=== PATIENT | male | born 1945 | race Caucasian/White ===

== ENCOUNTER 2018-02-04 10:21 | Inpatient (IN) | payer MEDICARE ==
[2018-02-04] VITALS (13 sets, daily range): BP systolic 76–101; BP diastolic 50–70
[~2018-02-04] VITALS: Ht 172.7 cm; Wt 46.8 kg
[2018-02-04] MEDS ORDERED: ELIQUIS2.5 MG PO (10:32)
[2018-02-04] MEDS ORDERED: XANAX0.5 MG PO (10:33)
[2018-02-04] MEDS ORDERED: PROZAC10 MG PO (10:35)
[2018-02-04 11:11] LABS: BASOPHILS 0.2 % (0-2); EOSINOPHILS 0.5 % (0-7); HEMOGLOBIN 15.5 g/dL (13.5-17.5); IMMATURE GRANULOCYTES 0.2 % (0-5); LYMPHOCYTES 18.6 % (15-50); MCH 31.4 pg (26.0-34.0); MCV 87.2 fL (80.0-100.0); MEAN PLATELET VOLUME 10.6 fL (7.4-10.4); MONOCYTES 12.8 % (2-11); NEUTROPHILS 67.7 % (40-80); PLATELET COUNT 241 10x3/uL (130-400); RBC 4.93 10x6/uL (4.20-6.10); RDW 13.2 % (11.5-14.5); WBC 5.7 10x3/uL (4.8-10.8)
[2018-02-04 11:21] LABS: APTT 29.9 SECONDS (22.8-39.4); INR 1.08 (0.85-1.17); PROTIME 13.6 SECONDS (11.6-15.0)
[2018-02-04 11:56] LABS: ALBUMIN 3.8 g/dL (3.4-5.0); ALKALINE PHOSPHATASE 93 U/L (46-116); ALT (SGPT) 15 U/L (10-68); AMYLASE - SERUM 69 U/L (25-115); BILIRUBIN - TOTAL 0.53 mg/dL (0.2-1.3); CALC OSMOLALITY 291 mosm/kg (275-300); CALCIUM 8.7 mg/dL (8.5-10.1); CARBON DIOXIDE 21.7 mmol/L (21.0-32.0); CHLORIDE - SERUM 91 mmol/L (98-107); CKMB 1.1 U/L (0.0-3.6); CREATINE KINASE 48 UL (21-232); CREATININE - SERUM 3.2 mg/dL (0.6-1.3); GLUCOSE 139 mg/dL (74-106); LIPASE 266 U/L (73-393); POTASSIUM - SERUM 3.4 mmol/L (3.5-5.1); PROTEIN - SERUM 7.1 g/dL (6.4-8.2); SODIUM 130 mmol/L (136-145); TROPONIN-I < 0.017 ng/mL (0.000-0.060); UREA NITROGEN 94 mg/dL (7-18); eGFR NON AFRICAN AMERICAN 20 mL/min (90-120)
[2018-02-04 12:47] LABS: APPEARANCE HAZY (CLEAR); BACTERIA FEW /hpf (NONE SEEN); BILIRUBIN NEGATIVE (NEGATIVE); COLOR DK YELLOW (YELLOW); EPITHELIAL CELLS 0-5 /hpf (0-5); GLUCOSE NEGATIVE (NEGATIVE); KETONE NEGATIVE (NEGATIVE); NITRITE NEGATIVE (NEGATIVE); PROTEIN 1+ mg/dL (NEGATIVE); SPECIFIC GRAVITY 1.025 (1.005-1.020); UROBILINOGEN NORMAL (NORMAL); WHITE CELLS - URINE 0-5 /hpf (0-5)
[2018-02-04 12:48] LABS: MUCUS >1+ /lpf (NONE SEEN); WAXY CAST RARE /lpf (NONE SEEN)
[2018-02-04] MEDS ORDERED: METAMUCIL PACKE1 PKT PO (21:10)
[2018-02-05 04:00] VITALS: BP 121/73
[2018-02-05 06:29] VITALS: BMI 15.2
[2018-02-05 08:34] VITALS: BP 81/54
[2018-02-05 10:43] LABS: BASOPHILS 0.2 % (0-2); EOSINOPHILS 1.9 % (0-7); HEMATOCRIT 36.5 % (42.0-54.0); IMMATURE GRANULOCYTES 0.2 % (0-5); MCH 31.5 pg (26.0-34.0); MCHC 35.6 g/dL (31.0-37.0); MCV 88.4 fL (80.0-100.0); MEAN PLATELET VOLUME 10.3 fL (7.4-10.4); MONOCYTES 15.2 % (2-11); NEUTROPHILS 66.5 % (40-80); PLATELET COUNT 227 10x3/uL (130-400); RBC 4.13 10x6/uL (4.20-6.10); RDW 13.2 % (11.5-14.5); WBC 4.8 10x3/uL (4.8-10.8)
[2018-02-05 11:02] VITALS: Ht 172.7 cm; Wt 46.8 kg
[2018-02-05 11:11] LABS: CALCIUM 7.8 mg/dL (8.5-10.1); CHOL - HDL RATIO 2.9 ratio (2.3-4.9); LDL-HDL RATIO 1.6 ratio (1.5-3.5); MAGNESIUM - SERUM 1.2 mg/dL (1.8-2.4); PRE-ALBUMIN 20.8 mg/dL (18.0-35.7)
[2018-02-05 11:21] LABS: ALBUMIN 2.9 g/dL (3.4-5.0); ANION GAP 10.2 mmol/L (8-16); BILIRUBIN - TOTAL 0.34 mg/dL (0.2-1.3); CALCIUM 7.9 mg/dL (8.5-10.1); CARBON DIOXIDE 23.8 mmol/L (21.0-32.0); PROTEIN - SERUM 5.6 g/dL (6.4-8.2); THYROID STIMULATING HORMONE 0.78 uIU/mL (0.36-3.74)
[2018-02-05 11:22] LABS: CREATININE - SERUM 1.4 mg/dL (0.6-1.3)
[2018-02-05 16:07] VITALS: BP 85/53
[2018-02-05 20:00] VITALS: BP 99/71
[2018-02-06 04:00] VITALS: BP 81/53
[2018-02-06 06:37] LABS: BASOPHILS 0.2 % (0-2); EOSINOPHILS 1.9 % (0-7); HEMATOCRIT 39.5 % (42.0-54.0); HEMOGLOBIN 13.6 g/dL (13.5-17.5); IMMATURE GRANULOCYTES 0.2 % (0-5); LYMPHOCYTES 15.9 % (15-50); MCH 30.6 pg (26.0-34.0); MCHC 34.4 g/dL (31.0-37.0); MEAN PLATELET VOLUME 10.6 fL (7.4-10.4); MONOCYTES 11.9 % (2-11); NEUTROPHILS 69.9 % (40-80); PLATELET COUNT 233 10x3/uL (130-400); RBC 4.44 10x6/uL (4.20-6.10); RDW 13.4 % (11.5-14.5)
[2018-02-06 06:55] LABS: WBC 6.2 10x3/uL (4.8-10.8)
[2018-02-06 07:36] LABS: ALBUMIN 2.7 g/dL (3.4-5.0); ALKALINE PHOSPHATASE 69 U/L (46-116); BILIRUBIN - TOTAL 0.31 mg/dL (0.2-1.3); CALC OSMOLALITY 286 mosm/kg (275-300); CALCIUM 7.9 mg/dL (8.5-10.1); CARBON DIOXIDE 24.4 mmol/L (21.0-32.0); CHLORIDE - SERUM 108 mmol/L (98-107); GLUCOSE 79 mg/dL (74-106); PROTEIN - SERUM 5.4 g/dL (6.4-8.2); SODIUM 140 mmol/L (136-145); UREA NITROGEN 37 mg/dL (7-18)
[2018-02-06 07:37] LABS: ALT (SGPT) 14 U/L (10-68); CREATININE - SERUM 0.9 mg/dL (0.6-1.3); POTASSIUM - SERUM 3.9 mmol/L (3.5-5.1); eGFR NON AFRICAN AMERICAN 89 mL/min (90-120)
[2018-02-06 08:36] VITALS: BP 94/64
[2018-02-06 10:23] LABS: FOLATE (FOLIC ACID) - SERUM 15.1 ng/mL (>3.0)
[2018-02-06 12:39] VITALS: BP 85/57
[2018-02-06 20:00] VITALS: BP 85/54
[2018-02-07 04:00] VITALS: BP 100/60
[2018-02-07 06:01] LABS: BASOPHILS 0.2 % (0-2); EOSINOPHILS 2.4 % (0-7); HEMATOCRIT 35.5 % (42.0-54.0); HEMOGLOBIN 12.1 g/dL (13.5-17.5); IMMATURE GRANULOCYTES 0.2 % (0-5); LYMPHOCYTES 14.1 % (15-50); MCH 30.6 pg (26.0-34.0); MCHC 34.1 g/dL (31.0-37.0); MCV 89.9 fL (80.0-100.0); MEAN PLATELET VOLUME 10.2 fL (7.4-10.4); MONOCYTES 11.2 % (2-11); NEUTROPHILS 71.9 % (40-80); PLATELET COUNT 206 10x3/uL (130-400); RBC 3.95 10x6/uL (4.20-6.10); RDW 13.8 % (11.5-14.5); WBC 6.6 10x3/uL (4.8-10.8)
[2018-02-07 06:40] LABS: ALBUMIN 2.3 g/dL (3.4-5.0); ALKALINE PHOSPHATASE 71 U/L (46-116); ALT (SGPT) 12 U/L (10-68); BILIRUBIN - TOTAL 0.11 mg/dL (0.2-1.3); CALC OSMOLALITY 283 mosm/kg (275-300); CALCIUM 7.2 mg/dL (8.5-10.1); CARBON DIOXIDE 21.1 mmol/L (21.0-32.0); CHLORIDE - SERUM 113 mmol/L (98-107); CREATININE - SERUM 0.8 mg/dL (0.6-1.3); GLUCOSE 67 mg/dL (74-106); PROTEIN - SERUM 4.5 g/dL (6.4-8.2); SODIUM 142 mmol/L (136-145); UREA NITROGEN 21 mg/dL (7-18); eGFR NON AFRICAN AMERICAN > 90 mL/min (90-120)
[2018-02-07 08:17] VITALS: BP 86/55
[2018-02-07 11:56] VITALS: BP 77/52
[2018-02-07] MEDS ORDERED: LOPERAMIDE HCL2 MG PO (14:55)
[2018-02-07] MEDS ORDERED: METAMUCIL PACKE1 PKT PO (15:03)
[2018-02-07] MEDS ORDERED: PEPCID AC20 MG PO (15:04)
[2018-02-07 15:33] VITALS: BP 79/45
[2018-02-07 21:09] VITALS: BP 82/51
[2018-02-08 01:28] VITALS: BP 86/52
[2018-02-08 05:21] LABS: BASOPHILS 0.3 % (0-2); EOSINOPHILS 3.8 % (0-7); HEMATOCRIT 33.2 % (42.0-54.0); HEMOGLOBIN 11.2 g/dL (13.5-17.5); IMMATURE GRANULOCYTES 0.2 % (0-5); LYMPHOCYTES 15.7 % (15-50); MCH 30.5 pg (26.0-34.0); MCHC 33.7 g/dL (31.0-37.0); MCV 90.5 fL (80.0-100.0); MEAN PLATELET VOLUME 10.3 fL (7.4-10.4); MONOCYTES 11.8 % (2-11); NEUTROPHILS 68.2 % (40-80); PLATELET COUNT 186 10x3/uL (130-400); RBC 3.67 10x6/uL (4.20-6.10); RDW 14.1 % (11.5-14.5); WBC 6.6 10x3/uL (4.8-10.8)
[2018-02-08 05:35] LABS: CARBON DIOXIDE 16.9 mmol/L (21.0-32.0); CHLORIDE - SERUM 115 mmol/L (98-107); SODIUM 141 mmol/L (136-145)
[2018-02-08 05:39] VITALS: BP 88/48
[2018-02-08 05:49] LABS: ALBUMIN 1.8 g/dL (3.4-5.0); ALKALINE PHOSPHATASE 50 U/L (46-116); ALT (SGPT) 11 U/L (10-68); BILIRUBIN - TOTAL 0.15 mg/dL (0.2-1.3); CREATININE - SERUM 0.6 mg/dL (0.6-1.3); GLUCOSE 85 mg/dL (74-106); PROTEIN - SERUM 4.2 g/dL (6.4-8.2); eGFR NON AFRICAN AMERICAN > 90 mL/min (90-120)
[2018-02-08 05:58] LABS: CALC OSMOLALITY 280 mosm/kg (275-300); CALCIUM 6.8 mg/dL (8.5-10.1); UREA NITROGEN 15 mg/dL (7-18)
[2018-02-08 08:16] VITALS: BP 78/49
[2018-02-08 11:25] VITALS: BP 93/54
[2018-02-14 11:20] LABS: VITAMIN K 0.25 ng/mL (0.13-1.88)
== END 2018-02-08 17:26 | DRG 682 ==
LOC: D.ER 10:21 → D.M2 13:57 → D.EDHOLD 13:57 → D.M2 18:51
PROVIDERS: Family Medicine; Internal Medicine Gastroenterology
DX: N17.9 Acute kidney failure, unspecified (principal); E43 Unspecified severe protein-calorie malnutrition; E87.1 Hypo-osmolality and hyponatremia; Z68.1 Body mass index [BMI] 19.9 or less, adult; R73.9 Hyperglycemia, unspecified; R53.1 Weakness; I95.9 Hypotension, unspecified; E87.6 Hypokalemia; R19.5 Other fecal abnormalities

== ENCOUNTER 2018-02-08 14:51 | Inpatient (IN) | payer MEDICARE ==
[~2018-02-08] VITALS: Ht 172.7 cm; Wt 51.3 kg
--- NOTE | ~2018-02-08 | RHP ---
PATIENT: HINA BISHOP MEDICAL RECORD: [id number] ACCOUNT: [id number] LOCATION:[facility]1114 : 49 ADMISSION DATE: 02/08/18 REHABILITATION HISTORY AND PHYSICAL EXAMINATION POST ADMISSION PHYSICIAN EXAMINATION DATE OF ADMISSION: 02/08/2018 ADMITTING DIAGNOSIS: Disuse myopathy. HISTORY OF PRESENT ILLNESS: The patient admitted to the inpatient rehab for a neurological condition of disuse myopathy. This is a 72-year-old gentleman who presented to the Emergency Room with weakness and inability to stand. He was found to be in acute renal failure, acute kidney injury, and dehydration. He reported he had been eating poorly and drinking poorly at home since his discharge from [facility] on 01/17/2018. He has had loose stools for ileostomy and skin irritation to his right lower abdomen secondary to the loose stool leakage. He has had a past medical history of colorectal cancer and colostomy placed in 1998. He is yet to have ileostomy placed to his lower right abdomen approximately 5-1/2 years ago after developing gangrenous small bowel infection and colostomy to his lower abdomen, is now nonfunctioning. He underwent both chemo and radiation. He has had a large amount of feces recently that triggered a dehydration and weight loss. Registered Private Duty Nurse has been consulted and he has been following the patient during his acute hospital stay. He has been noncompliant with ostomy care and assistance with care of his ileostomy, but has been allowing assistance over the past couple of days. He continues to need assistance with ostomy care and skin breakdown irritation to his right lower abdomen. He has been very hypotensive at times, they are starting to slowly hydrate and monitor his lab values closely. He is very debilitated and weak. He is unable to take care of himself at this time and needs acute inpatient rehabilitation to return back to his prior level of function or better. He lives alone in an apartment and requires steps to be climbed to enter. He was independent with ADLs and mobility prior to this. He is currently set for mod assist with his ADLs, mod assist to total assist with mobility. He plans on returning back to his apartment or home at his prior level of functioning or better after the acute inpatient stay. COMORBIDITIES: In this patient include acute kidney injury, hyperglycemia, hyponatremia, hypokalemia, weakness, hypotension, guaiac-positive stool, rectal cancer, gangrenous small bowel. PAST MEDICAL HISTORY: Significant for gastroesophageal reflux disease, depression, idiopathic kyphoscoliosis, hypertension, history of PE, chronic pain, tobacco use, rectal cancer, rectal resection, colostomy, gangrenous small bowel, weakness, COPD and ileostomy. PAST SURGICAL HISTORY: Includes rectal resection with colostomy and gangrenous small bowel. ALLERGIES: SULFA. CURRENT MEDICATIONS: Include Prozac 10 mg daily. He is on Calmoseptine daily, Xanax 0.5 mg b.i.d., psyllium 1 packet t.i.d. with meals, loperamide 2 mg every 8 hours p.r.n., Pepcid 20 mg b.i.d. and Eliquis 2.5 mg b.i.d. HISTORY AND PHYSICAL [id number] HINA BISHOP HABITS: Does have a history of tobacco use. FAMILY HISTORY: Noncontributory. SOCIAL HISTORY: The patient hopefully will be able to return home if able. REVIEW OF SYSTEMS: GENERAL: Denies weakness or fatigue. HEENT: Denies cold, cough, or congestion. CARDIOVASCULAR: Denies chest pain. PHYSICAL EXAMINATION: VITAL SIGNS: Stable, afebrile. GENERAL: An elderly gentleman who is alert and somewhat resistant to care at this time. HEENT: Normocephalic and atraumatic. Mucosa moist. NECK: Supple. No lymphadenopathy. LUNGS: Clear at this time. HEART: Regular rate and rhythm. ABDOMEN: Benign, although he does have a reddened area to his ileostomy area that appears excoriated around this, but apparently he has been dabbing this area all day long. EXTREMITIES: No clubbing, cyanosis or edema. NEUROLOGIC: He does have some noted confusion. LABORATORY DATA: His white count 6.3, H&H of 13 and 38 and platelet count was noted to be 197. His sodium is 139, potassium 4.1, BUN and creatinine of 10 and 0.8 and blood sugar is noted to be 81. ASSESSMENT: This is a 72-year-old gentleman admitted to the rehab with a working diagnosis of disuse myopathy. The patient has potential to make improvement. We instituted the following multidisciplinary therapies include, but not limited to physical, occupational, respiratory, speech, nutritional services, prosthetics and orthotics. Given his complex medical condition and risk for more complications, rehabilitation services cannot be provided at a low level of care such as a half-way facility. PLAN: 1. Admit to [facility] for intensive inpatient therapy to include the following disciplines: A. Physical therapy to improve gait, all transfer skills and bed mobility to a modified independent level. B. Occupational therapy to improve activities of daily living to a modified independent level. C. Case management to assist with discharge planning and placement options. D. Nutrition to assist with nutritional needs. E. Rehabilitation nursing to assist in monitoring the patient's underlying medical conditions and to assist with any type of bowel or bladder management. 2. The patient's current medication and medical care will be continued. 3. Placed on standard fall precautions. 4. We are going to go ahead and get an adult psych consult on this patient at this time. 5. We will follow this patient up in a.m. TRANSINT:[id number] Voice Confirmation ID: [id number] DOCUMENT ID: [id number] HISTORY AND PHYSICAL [id number] HINA BISHOP notes whether there has been none or any medical/functional change since admission: - No change since the PAS JIMMY attests patient continues to be appropriate for IRF: - Remains appropriate for the IRF IRAIDA MATOS MD at 1502 CC: [id number] DICTATION DATE: 02/09/18 165 HYDRO PNEUMATIC TESTER: 02/09/18 1739 DIS IN 02/14/18 [place] [id number] [place] [id number]
[~2018-02-08 14:51] MED LIST: ELIQUIS2.5 MG PO; LOPERAMIDE HCL2 MG PO; METAMUCIL PACKE1 PKT PO; PEPCID AC20 MG PO; PROZAC10 MG PO; XANAX0.5 MG PO
[2018-02-08 17:16] VITALS: BP 103/62; BMI 17.2
[2018-02-08 19:00] VITALS: BP 103/62
[2018-02-09 06:30] LABS: BASOPHILS 0.3 % (0-2); EOSINOPHILS 4.6 % (0-7); HEMATOCRIT 37.7 % (42.0-54.0); HEMOGLOBIN 12.7 g/dL (13.5-17.5); IMMATURE GRANULOCYTES 0.3 % (0-5); LYMPHOCYTES 22.7 % (15-50); MCH 30.8 pg (26.0-34.0); MCHC 33.7 g/dL (31.0-37.0); MCV 91.3 fL (80.0-100.0); MEAN PLATELET VOLUME 10.2 fL (7.4-10.4); MONOCYTES 11.3 % (2-11); NEUTROPHILS 60.8 % (40-80); PLATELET COUNT 197 10x3/uL (130-400); RBC 4.13 10x6/uL (4.20-6.10); RDW 14.4 % (11.5-14.5); WBC 6.3 10x3/uL (4.8-10.8)
[2018-02-09 06:49] LABS: CALCIUM 7.3 mg/dL (8.5-10.1); CARBON DIOXIDE 19.6 mmol/L (21.0-32.0); CHLORIDE - SERUM 112 mmol/L (98-107); GLUCOSE 81 mg/dL (74-106); POTASSIUM - SERUM 4.1 mmol/L (3.5-5.1); SODIUM 139 mmol/L (136-145)
[2018-02-09 06:50] LABS: CALC OSMOLALITY 275 mosm/kg (275-300); CREATININE - SERUM 0.8 mg/dL (0.6-1.3); UREA NITROGEN 10 mg/dL (7-18); eGFR NON AFRICAN AMERICAN > 90 mL/min (90-120)
[2018-02-09 08:00] VITALS: BP 114/70
[2018-02-09 13:05] VITALS: Ht 172.7 cm; Wt 51.3 kg
[2018-02-10 08:00] VITALS: BP 110/60
[2018-02-10 20:30] VITALS: BP 122/78
[2018-02-11 07:21] LABS: BASOPHILS 0.4 % (0-2); EOSINOPHILS 4.5 % (0-7); HEMATOCRIT 32.4 % (42.0-54.0); HEMOGLOBIN 10.8 g/dL (13.5-17.5); IMMATURE GRANULOCYTES 0.6 % (0-5); LYMPHOCYTES 27.4 % (15-50); MCH 30.3 pg (26.0-34.0); MCHC 33.3 g/dL (31.0-37.0); MEAN PLATELET VOLUME 9.9 fL (7.4-10.4); MONOCYTES 12.3 % (2-11); NEUTROPHILS 54.8 % (40-80); PLATELET COUNT 185 10x3/uL (130-400); RBC 3.56 10x6/uL (4.20-6.10); RDW 14.3 % (11.5-14.5); WBC 4.6 10x3/uL (4.8-10.8)
[2018-02-11 07:43] LABS: CALC OSMOLALITY 280 mosm/kg (275-300); CALCIUM 7.2 mg/dL (8.5-10.1); CARBON DIOXIDE 21.6 mmol/L (21.0-32.0); CHLORIDE - SERUM 112 mmol/L (98-107); CREATININE - SERUM 0.6 mg/dL (0.6-1.3); GLUCOSE 81 mg/dL (74-106); POTASSIUM - SERUM 3.8 mmol/L (3.5-5.1); SODIUM 141 mmol/L (136-145); UREA NITROGEN 16 mg/dL (7-18); eGFR NON AFRICAN AMERICAN > 90 mL/min (90-120)
[2018-02-11 08:23] VITALS: BP 94/58
[2018-02-11 19:00] VITALS: BP 94/52
[2018-02-12 08:28] VITALS: BP 106/66
[2018-02-12 19:00] VITALS: BP 96/65
[2018-02-13 06:59] LABS: BASOPHILS 0.2 % (0-2); EOSINOPHILS 3.5 % (0-7); HEMATOCRIT 30.9 % (42.0-54.0); HEMOGLOBIN 10.2 g/dL (13.5-17.5); IMMATURE GRANULOCYTES 0.4 % (0-5); LYMPHOCYTES 28.1 % (15-50); MCH 30.6 pg (26.0-34.0); MCV 92.8 fL (80.0-100.0); MEAN PLATELET VOLUME 10.1 fL (7.4-10.4); MONOCYTES 15.9 % (2-11); NEUTROPHILS 51.9 % (40-80); PLATELET COUNT 174 10x3/uL (130-400); RBC 3.33 10x6/uL (4.20-6.10); RDW 14.4 % (11.5-14.5); WBC 4.8 10x3/uL (4.8-10.8)
[2018-02-13 07:18] LABS: CALC OSMOLALITY 278 mosm/kg (275-300); CALCIUM 7.1 mg/dL (8.5-10.1); CARBON DIOXIDE 24.4 mmol/L (21.0-32.0); CHLORIDE - SERUM 110 mmol/L (98-107); CREATININE - SERUM 0.6 mg/dL (0.6-1.3); GLUCOSE 69 mg/dL (74-106); POTASSIUM - SERUM 3.2 mmol/L (3.5-5.1); SODIUM 141 mmol/L (136-145); UREA NITROGEN 13 mg/dL (7-18); eGFR NON AFRICAN AMERICAN > 90 mL/min (90-120)
[2018-02-13 08:19] VITALS: BP 72/43
[2018-02-13 08:58] VITALS: BP 87/45
[2018-02-13 19:00] VITALS: BP 80/53
[2018-02-14 08:25] VITALS: BP 85/54
[2018-02-14] MEDS ORDERED: QUESTRAN PACK4 G/PKT PO (15:16)
[2018-02-14] MEDS ORDERED: K-DUR20 MEQ PO (15:16)
[2018-02-14] MEDS ORDERED: PATOWN MISC (15:26)
== END 2018-02-14 17:00 | disposition home health service (06) | DRG 92 ==
LOC: D.REHAB 14:51 → D.SDCHOLD 02-12 11:26 → D.REHAB 02-12 11:30
PROVIDERS: Emergency Medicine
DX: G72.89 Other specified myopathies (principal); N17.9 Acute kidney failure, unspecified; E87.1 Hypo-osmolality and hyponatremia; Z68.1 Body mass index [BMI] 19.9 or less, adult; R73.9 Hyperglycemia, unspecified; E87.6 Hypokalemia; R53.1 Weakness; I95.9 Hypotension, unspecified; R19.5 Other fecal abnormalities; Z91.19 Patient's noncompliance with other medical treatment and regimen; K21.9 Gastro-esophageal reflux disease without esophagitis; J44.9 Chronic obstructive pulmonary disease, unspecified; Z93.2 Ileostomy status; R63.4 Abnormal weight loss